=== PATIENT | female | born 1960 | race Caucasian/White ===

== ENCOUNTER → 2016-04-16 | Outpatient (CLI) | payer MEDICARE, BC ==
[~2016-04-16] MED LIST: ADAL1INJ; AMBI10TA PO; AMOX250T; BUPR150XL; CHOL50006 PO; ESTR1TAB12 PO; GOLI100I IM; HYDR-3516 PO; HYDR7.5T76 PO; LACTCAP8 PO; LORA1TAB12 PO; MULTCAP2; PERC7.5T13 PO; WELLTAB39 PO
[2016-04-16 12:24] LABS: AUTOMATED NEUTROPHIL # 2.5 TH/MM3 (1.8-7.7); BASOPHIL % 0.7 % (0.0-2.0); EOSINOPHIL # 0.1 TH/MM3 (0-0.4); EOSINOPHIL % 1.9 % (0.0-4.0); HEMATOCRIT 36.5 % (35.0-46.0); HEMO FLAGS DIFF FINAL; LYMPH % 39.4 % (9.0-44.0); LYMPHOCYTE # 2.1 TH/MM3 (1.0-4.8); MEAN CELL VOLUME 95.2 FL (80.0-100.0); MEAN CORPUSCULAR HEMOGLOBIN 32.3 PG (27.0-34.0); MEAN CORPUSCULAR HGB CONC 33.9 % (32.0-36.0); MONO % 10.3 % (0.0-8.0); NEUT % 47.7 % (16.0-70.0); PLATELET COUNT 313 TH/MM3 (150-450); RED BLOOD COUNT 3.84 MIL/MM3 (4.00-5.30); WHITE BLOOD COUNT 5.3 TH/MM3 (4.0-11.0)
[2016-04-16 13:01] LABS: BICARBONATE 29.3 MEQ/L (21.0-32.0)
--- NOTE | 2016-04-16 13:49 | EKG ---
Date Performed: 04/16/2016 Time Performed: 11:23:29 PTAGE: 55 years EKG: Sinus rhythm POSSIBLE RIGHT VENTRICULAR CONDUCTION DELAY BORDERLINE ECG PREVIOUS TRACING : 10/04/1999 15.48 No significant change from previous tracing noted. DOCTOR: Víctor Acosta Interpretating Date/Time 04/16/2016 13:47:43
== END ==
LOC: CPRE 10:57
PROVIDERS: ATTEND Orthopaedic Surgery Orthopaedic Surgery of the Spine
DX: Z01.818 Encounter for other preprocedural examination (principal); Z01.812 Encounter for preprocedural laboratory examination; M48.02 Spinal stenosis, cervical region
CPT/HCPCS: 36415; 80048; 85025; 93005

== ENCOUNTER → 2016-04-26 | Day surgery (SDC) | payer MEDICARE, BC ==
[~2016-04-26] VITALS: Ht 167.6 cm; Wt 65.8 kg
[~2016-04-26] MED LIST changes: +*HYDROmorphone PF 1 MG VIAL PERIprocedural Use ONLY ONE; +*PROMETHAZINE 25 MG/ML VIAL PERIprocedural use ONLY ONE; +ACETAMINOPHEN 1000 MG/100 ML VIAL IV ONE; +ACETAMINOPHEN/HYDROcodone 325 MG/7.5 MG TAB PO PRN; -ADAL1INJ; -AMOX250T; +APREPITANT 40 MG CAP ONE; +BUPIVACAINE/EPINEPHRINE 0.25% PF 30 ML VIAL ONE; -BUPR150XL; +CHLORHEXIDINE GLUCONATE 4% SOLN 120 ML BTL TOP SCH; -ESTR1TAB12 PO; +FAMOTIDINE 20 MG/2 ML VIAL IV ONE; +GELFOAM SIZE 100 ONE; +GENTAMICIN SULFATE 80 MG/2 ML VIAL ONE; +HYDROmorphone HCL PF 2 MG/ML VIAL ONE; +INSULIN HUMAN REGULAR 1,000 UNITS/10 ML VIAL SQ PRN; +LACTATED RINGER'S 1000 ML INJ 1,000 ML IV ONE; +LACTATED RINGER'S 1000 ML IV SCH; +METOPROLOL TARTRATE 25 MG TAB PO PRN; +MIDAZOLAM HCL 2 MG/2 ML VIAL ONE; +NEOSTIGMINE 3 MG/3 ML SYR IV ONE; +ONDANSETRON HCL 4 MG/2 ML VIAL IV PUSH ONE; -PERC7.5T13 PO; +PROPOFOL 200 MG/20 ML AMP IV ONE; +SODIUM CHLOR 0.9% 1000 ML INJ 1,000 ML IV ONE; +SODIUM CHLORID 0.9% 500 ML IV SCH; +VANCOMYCIN 1000 MG/NS 250 ML (for <70 kg) IV SCH; +ceFAZolin 2 GM PREMIX 50 ML IV SCH; +ePHEDrine/NS 25 MG/5 ML SYR IV ONE; +fentaNYL CITRATE 250 MCG/5 ML AMP ONE
[2016-04-26 07:00] VITALS: BP 103/63; PULSE 80; RESP 16; TEMP 98; O2SAT 98
--- NOTE | 2016-04-26 12:03 | PD.OP ---
cc: Jermaine Mead MD; Davin Mead MD Operative Report Date of Surgery: Apr 26, 2016 Preoperative Diagnosis: Osteophyte disc complex C5 6. Osteophyte disc complex C6 7. This right greater than left cervical radiculopathy Postoperative Diagnosis: Same Procedure: Anterior cervical discectomy decompression with bilateral foraminotomies, C5 6. Anterocervical discectomy decompression and bilateral foraminotomies, C6 7. Left anterior iliac crest bone graft Anesthesia: Gen. Surgeon: Davin Mead Exchange Specialist(s): HALINA Herrera Operation and Findings: EBL: 50 cc INDICATIONS: This patient is a 55-year-old female with significant degenerative changes and evidence of osteophyte disc complexes at C5 6 and C6 7. She manifests with a right greater than left cervical radiculopathy. Despite extensive conservative care which is outlined in the past records, she presents for surgical treatment. NOTE: Lela Herrera PA-C was present for the entire surgical procedure as my assistant manager/embalmer. In my medical opinion her skill and care was necessary for proper management of this patient PROCEDURE: The patient was brought to the operating room and anesthetized in the supine position. This patient was positioned supine on the radiolucent table. All pressure points were protected in the anterior cervical spine and iliac crest was scrubbed with alcohol followed by Hibiclens followed by ChloraPrep. A timeout was done and antibiotics were given within 1 hour time window. Lateral radiographic images were used identifying the proper level. A right anterior incision was made in line with skin creases. The platysma was opened in line with the incision. Deep dissection continued in the interval between the carotid sheath and the esophagus. The longus-coli muscles were lifted on both sides and retractors were positioned allowing good exposure. Lateral radiographic images were used to identify the proper level. Dietrich style interosseous pins were placed at C5 and C6 allowing exposure to that level. The microscope was rolled into the field. A total discectomy was accomplished and posterior osteophytes were removed. The posterior longitudinal ligament and annulus was taken down. Bilateral foraminotomies were accomplished. The endplates were squared up anticipating later bone grafting. A blunt probe could be placed out each foramen without evidence of nerve root compromise. The C5 pin was placed down to C7. An anterior exposure was accomplished. We performed a total discectomy with excision of the posterior annulus and posterior longitudinal ligament. Bilateral foraminotomies were accomplished. Osteophytes were removed. The endplates were squared up anticipating later bone grafting. A blunt probe could be placed out each foramen without evidence of nerve root compromise. The left iliac crest was approached. A small stab incision was made allowing percutaneous access to the anterior iliac crest. Multiple cores of cancellous bone were harvested and taken to the back table to be used for later bone grafting. The wound was irrigated anesthetized and closed with 4-0 Vicryl followed by Dermabond. The case was turned over to Dr. Jermaine Mead for fusion and instrumentation per his dictation. FINDINGS: There was evidence of moderate central stenosis at C5 6 and evidence of central osteophyte disc complexes at both levels. Right foraminal stenosis was seen worse at the C5 6 level than the C6 7 level. There was a small disc extending into the foramen to the left at C6 7. No complication was noted. NOTE: This surgery was performed in 2 parts. The first part was the neurosurgical decompression performed under the variable power stereo microscope by the undersigned in addition to the bone graft. The second portion of the surgery will be performed by the orthopedic spine component by co -surgeon, Dr. Jermaine Mead for the anterior fusion with interbody cage and anterior plate. The skill of 2 surgeons was necessary to perform distinct separate procedural services as dictated above and dictated in the following operative note by Dr. Jermaine Mead. Davin Mead MD Apr 26, 2016 12:02
[2016-04-26 14:37] VITALS: TEMP 97.6
[2016-04-26 15:30] VITALS: BP 123/67; PULSE 78; RESP 20; O2SAT 97
--- NOTE | 2016-04-26 15:30 | RADRPT ---
EXAM DATE/TIME: 04/26/2016 11:48 [facility] COMPARISON: No previous studies available for comparison. INDICATIONS : ACDF 5-6, 6-7 MEDICAL HISTORY : None. SURGICAL HISTORY : None. ENCOUNTER: Initial ACUITY: PAIN SCORE: Non-responsive. LOCATION: Cervical spine FINDINGS: Multiple AP and lateral cone-down views of the cervical spine were obtained using a matrix camera and demonstrate that the patient is status post anterior cervical fusion at the C5-C7 level with intact anterior screw-plate fixation device. There is bone graft material and metallic markers in the inters paces. The alignment is anatomic. A tracheostomy tube and temperature probe are noted. CONCLUSION: Status post anterior cervical fusion. Jona Cartwright MD on April 26, 2016 at 15:27 Board Certified Radiologist. This report was verified electronically.
--- NOTE | 2016-04-27 19:41 | MP ---
cc: RONEY MEAD MICHAEL D. MD SPRINGER, DEANNA K. M.D. (Dr. Harrison's fax #[phone]) (Dr. Crump's fax #[phone] DATE OF SURGERY 04/26/15 PREOPERATIVE DIAGNOSIS 1. C5-6 herniated nucleus pulposus, osteophyte disk complex, right-sided foraminal stenosis. 2. C6-7 osteophyte disk complex, right greater than left foraminal stenosis. 3. Cervical spine degenerative disk osteoarthritis. 4. Right greater than left cervical radiculitis with right upper extremity weakness 5. Rheumatoid arthritis. POSTOPERATIVE DIAGNOSIS 1. C5-6 herniated nucleus pulposus, osteophyte disk complex, right-sided foraminal stenosis. 2. C6-7 osteophyte disk complex, right greater than left foraminal stenosis. 3. Cervical spine degenerative disk osteoarthritis. 4. Right greater than left cervical radiculitis with right upper extremity weakness 5. Rheumatoid arthritis. PROCEDURE C5-6, C6-7 interbody fusion; C5-6, C6-7 spinet ACC anterior cervical cages; C5-C7 spinet Rauscher anterior spinal instrumentation. SURGEON Ned Mead MD ROLL DOUGH DIVIDER Huan Brown, CRISTIAN SPECIMENS None ESTIMATED BLOOD LOSS 150 mL for entire case. ANESTHESIA General DRAINS None CONDITION Stable PLAN OF ACTIVITY Per orders PROCEDURE IN DETAIL Dr. Davin Mead and myself were cosurgeons on the surgical future. Dr. Davin Mead initially performed a C5-6 anterior cervical diskectomy, anterior exposure, with a C5-6, C6-7 anterior cervical diskectomy and decompression using operative microscope and a left anterior iliac crest bone grafting. I was not present for his portion of the procedure. As cosurgeon, I performed the orthopedic fusion and stabilization of the spine which is well-described in my operative note. Dr. Davin Mead was not present for that portion of the procedure. My healthcare administrative assistant, Lashell FOSTER, was present for my portion of the case. She was medically necessary for my portion of the case because of the complexity of the case and to facilitate the performance of the procedure. The BLUNGER LOADER at the back table is not a skill set for this case to manipulate the instruments e.g. the multiple different types of soft tissue retractors, trial implants and permanent implants. The endplates at C6-7 were prepared for fusion. The hyaline cartilage endplate was removed using angled curettes and burs. A 7 10x12 ACC cage placed in the interspace. Anterior iliac crest autogenous bone graft was used under fluoroscopic guidance for interbody fusion. The endplates at C5-6 were prepared for fusion. The hyaline cartilage endplates were removed using angled curettes and burs. A 7 10x12 ACC cage was placed in the interspace using anterior iliac crest bone grafting under fluoroscopic guidance for interbody fusion. Anterior osteophytes were removed using multiple different types of pituitary rongeurs, regular rongeurs and a bur. A 40-mm length spinet Rauscher plate was used for anterior spinal instrumentation. Two tacks were used superiorly inferiorly and under fluoroscopic guidance AP lateral plane to confirm appropriate positioning of the plate on the vertebral body. The two screws were used at the body at C5m C6 and C7. Each screw was drilled, 14-mm length screws 4.0 mm fixed angle screws were used and each screw had appropriate locked to the plate. The wound was irrigated with copious amounts of sterile saline antibiotic solution. Wound itself was dry. The wound was closed in multiple layers using 3-0 Vicryl suture. Skin was approximated running subcuticular 4-0 Vicryl. Dermabond placed over the skin incision. Sterile dressings were applied. The patient placed in [place] cervical orthosis. The patient tolerated the procedure well and went to recovery room in stable and satisfactory condition. Intraoperative fluoroscopy of the cervical spine AP and lateral confirmed satisfactory position of the bone graft at C5-6 and C6-7, satisfactory position of ACC cages at C5-6 and C6-7 and satisfactory position anterior spinal instrumentation at C5 and C7. MD MELODY Thornton/ /12:14 PM /7:18 PM
== END | disposition home or self-care (01) ==
LOC: HSDC 06:21 → EDSTATUS 07:30
PROVIDERS: ATTEND Orthopaedic Surgery Orthopaedic Surgery of the Spine
DX: M50.222 Other cervical disc displacement at C5-C6 level (principal); M50.223 Other cervical disc displacement at C6-C7 level; M47.22 Other spondylosis with radiculopathy, cervical region; M48.02 Spinal stenosis, cervical region; M06.9 Rheumatoid arthritis, unspecified
CPT/HCPCS: 00600; 20931; 22551; 22552; 22845; 72040; 76000; C1713; J0131; J0690; J1170; J1580; J2250; J2405; J2550; J2710; J3010; J3370; J7030; J7050; J7120; J8501